=== PATIENT | male | born 1950 | race Caucasian/White ===

== ENCOUNTER 2017-02-16 10:08 | Observation (INO) | payer MEDICARE, OTHER ==
[~2017-02-16] VITALS: Ht 177.8 cm; Wt 114.0 kg
[~2017-02-16 10:08] MED LIST: ATOR80TA75 PO; DEXAMETHASONE 4 MG/ML, 1ML ONE; EPHEDRINE 50 MG/ML, 1ML ONE; FINA5TAB4 PO; ONDANSETRON 2MG/ML, 2ML ONE; PROPOFOL 10 MG/ML, 20ML ONE; TAMS0.4C2 PO
[2017-02-16] MEDS ORDERED: LACTATED RINGERS 1,000 ML IV SCH (10:36)
[2017-02-16 10:39] VITALS: BP 105/71
[2017-02-16] MEDS ORDERED: LIDOCAINE 1%, 2ML SQ PRN (11:00)
[2017-02-16] MEDS ORDERED: FENTANYL PF 250 MCG/5ML ONE (12:22)
[2017-02-16] MEDS ORDERED: MIDAZOLAM 1 MG/ML, 2ML ONE (12:22)
[2017-02-16] MEDS ORDERED: hydrALAzine 20 MG/ML, 1ML IV PRN (13:30)
[2017-02-16] MEDS ORDERED: MIDAZOLAM 1 MG/ML, 2ML IV PRN (13:30)
[2017-02-16] MEDS ORDERED: PROMETHAZINE 25 MG/ML, 1ML IV PRN (13:30)
[2017-02-16] MEDS ORDERED: ONDANSETRON 2MG/ML, 2ML IVPush PRN (13:30)
[2017-02-16] MEDS ORDERED: MEPERIDINE/PF 25MG/0.5ML IVPush PRN (13:30)
[2017-02-16] MEDS ORDERED: ACETAMINOPHEN 325 MG TABLET PO PRN ×2 (13:30→16:30)
[2017-02-16] MEDS ORDERED: FENTANYL PF 100 MCG/2ML IV PRN (13:30)
[2017-02-16] MEDS ORDERED: EPHEDRINE 50 MG/ML, 1ML IVPush PRN (13:30)
[2017-02-16] MEDS ORDERED: HYDROcodone/APAP 7.5-325MG/15ML UDC PO PRN (13:30)
[2017-02-16] MEDS ORDERED: HYDROmorphone 1 MG/ML, 1ML IV PRN (13:30)
[2017-02-16] MEDS ORDERED: LABETALOL 5MG/ML, 20ML IV PRN (13:30)
[2017-02-16] MEDS ORDERED: OXYcodone 5 MG/5 ML ORAL.SOL UDC PO PRN (13:30)
[2017-02-16] MEDS ORDERED: OXYcodone/APAP 5/325MG TABLET PO PRN (16:00)
[2017-02-16] MEDS ORDERED: ONDANSETRON 2MG/ML, 2ML IV PRN (16:30)
[2017-02-16] MEDS: D5%-LACTATED RINGERS 1,000 ML IV SCH (16:30)
[2017-02-16] MEDS ORDERED: morphine SULFATE 10 MG/ML, 1ML IV PRN (16:30)
[2017-02-16] MEDS ORDERED: OPIUM/BELLADONNA SUPP.RECT 16.2-30 MG PR PRN (16:30)
[2017-02-16 19:54] VITALS: BP 104/66
[2017-02-16] MEDS ORDERED: ATORVASTATIN 80 MG TABLET PO SCH (21:00)
[2017-02-16 23:56] VITALS: BP 101/56
[2017-02-17] MEDS: D5%-LACTATED RINGERS 1,000 ML IV SCH ×2 (00:30→08:30)
[2017-02-17 03:35] VITALS: BP 96/55
[2017-02-17 07:17] VITALS: BP 101/59
[2017-02-17 11:30] VITALS: BP 127/75
[2017-02-17] MEDS ORDERED: ACET-1757 PO (11:59)
== END 2017-02-17 12:25 | disposition home or self-care (01) ==
LOC: OUT 10:08 → 4NOR 15:40 → OUT 23:25 → 4NOR 23:26 → DCLOUNGE 02-17 11:46
PROVIDERS: ADMIT Urology; ATTEND Urology
DX: N40.1 Benign prostatic hyperplasia with lower urinary tract symptoms (principal); N32.0 Bladder-neck obstruction; N13.8 Other obstructive and reflux uropathy; R35.1 Nocturia; E78.5 Hyperlipidemia, unspecified; Z80.1 Family history of malignant neoplasm of trachea, bronchus and lung; Z84.1 Family history of disorders of kidney and ureter
CPT/HCPCS: 52630; 88305; C1769; G0378; J1100; J2250; J2405; J2704; J3010; J7120; J7121